=== PATIENT | female | born 1990 | race Caucasian/White ===

== ENCOUNTER 2023-12-15 06:00 | Inpatient (IN) | payer BC ==
[2023-12-15] MEDS: LACTATED RINGERS 1,000 ML IV SCH (06:15)
[2023-12-15] MEDS ORDERED: miSOPROStoL 200 MCG TAB PO PRN (06:18)
[2023-12-15] MEDS ORDERED: OXYTOCIN 10 UNIT/ML 1 ML VIAL IM PRN (06:18)
[2023-12-15] MEDS ORDERED: TRANEXAMIC 1,000 MG/100ML-NACL 1,000 MG in EMPTY BAG 1 BAG IV PRN (06:18)
[2023-12-15] MEDS ORDERED: miSOPROStoL 200 MCG TAB RECTAL PRN (06:18)
[2023-12-15] MEDS ORDERED: CARBOPROST TROMETHAMINE 250 MCG/ML 1 ML AMP IM PRN (06:18)
[2023-12-15] MEDS ORDERED: LIDOCAINE 0.5% (PF) 5 MG/ML (50 ML SDV) SQ PRN (06:18)
[2023-12-15] MEDS ORDERED: METHYLERGONOVINE 0.2 MG/ML 1 ML AMP IM PRN (06:18)
[2023-12-15] MEDS ORDERED: TERBUTALINE 1 MG/ML VIAL SQ PRN (06:18)
[2023-12-15 06:34] LABS: Basophils # (A) 0.1 k/uL (0-0.2); Basophils % (A) 0 %; Eosinophils # (A) 0.3 k/uL (0-0.7); Eosinophils % (A) 2 %; HCT 43.2 % (34.0-46.0); HGB 14.4 gm/dL (11.4-16.0); Lymphocytes # (A) 3.1 k/uL (1.0-4.8); Lymphocytes % (A) 27 %; MCH 28.6 pg (25.0-35.0); MCHC 33.4 g/dL (31.0-37.0); MCV 85.6 fL (80.0-100.0); Mean Platelet Volume 8.7; Monocytes # (A) 0.6 k/uL (0-1.0); Monocytes % (A) 5 %; Neutrophils # (A) 7.4 k/uL (1.3-7.7); Neutrophils % (A) 64 %; Platelet Count 228 k/uL (150-450); RBC 5.04 m/uL (3.80-5.40); RDW 12.8 % (11.5-15.5); WBC 11.6 k/uL (3.8-10.6)
[2023-12-15] MEDS: OXYTOCIN 30 UNITS/500 ML NS 30 UNIT in SALINE 1 500ML.BAG IV SCH (06:46)
[2023-12-15] MEDS ORDERED: ROPIVACAINE 5 MG/ML 30 ML VIAL ONE (09:45)
[2023-12-15] MEDS ORDERED: fentaNYL (PF) 50 MCG/ML 5 ML AMP ONE (09:45)
[2023-12-15] MEDS ORDERED: SODIUM CHLORIDE 0.9% 250 ML BAG ONE (09:45)
[2023-12-15] MEDS ORDERED: ZOLPIDEM 5 MG TAB PO PRN (14:24)
[2023-12-15] MEDS ORDERED: diphenhydrAMINE 25 MG CAP PO PRN (14:24)
[2023-12-15] MEDS ORDERED: HYDROCORTISONE 2.5% RECTAL CREAM 30 GM TUBE RECTAL PRN (14:24)
[2023-12-15] MEDS ORDERED: SIMETHICONE 80 MG CHEWABLE PO PRN (14:24)
[2023-12-15] MEDS ORDERED: diphenhydrAMINE 50 MG CAP PO PRN (14:24)
[2023-12-15] MEDS ORDERED: diphenhydrAMINE 50 MG/ML 1 ML VIAL IVP PRN ×2 (14:24)
[2023-12-15] MEDS ORDERED: BENZOCAINE/MENTHOL SPRAY 1 GM/SPRAY AEROSOL TOPICAL PRN (14:24)
[2023-12-15] MEDS ORDERED: LANOLIN CREAM 1 GM TUBE TOPICAL PRN (14:24)
--- NOTE | 2023-12-15 14:27 | P.HPOB ---
History of Present Illness H&P Date: 12/15/23 Chief Complaint: IUP at 39 and 2/7 weeks This is a 33-year-old 1 para 0 that presented to labor and delivery at 39-2/7 weeks. Patient has been receiving routine care with myself which has been essentially uncomplicated. On blood work this patient is a blood type of a positive, rubella status immune, hepatitis B surface engine negative, HIV negative, RPR is nonreactive, group B strep culture is negative. Upon admission patient notes good movement, denies loss of fluid or vaginal bleeding notes an occasional contraction. Review of Systems Constitutional: Denies chills, Denies fatigue, Denies fever Ears, nose, mouth and throat: Denies headache Cardiovascular: Reports leg edema Respiratory: Denies dyspnea Gastrointestinal: Denies nausea, Denies vomiting Genitourinary: Reports Past Medical History Past Medical History: No Reported History History of Any Multi-Drug Resistant Organisms: None Reported Past Surgical History: No Surgical Hx Reported Smoking Status: Never smoker Medications and Allergies Home Medications Medication Instructions Recorded Confirmed Type Aspirin [Adult Low Dose Aspirin EC] 81 mg PO 12/15/23 History Vit No.179/Iron/Folic 1 each PO 12/15/23 History [ Tablet] Allergies Allergy/AdvReac Type Severity Reaction Status Date / Time No Known Allergies Allergy Verified 12/15/23 06:16 Exam Osteopathic Statement: *. No significant issues noted on an osteopathic struct ural exam other than those noted in the History and Physical/Consult. Vital Signs Temp Pulse Resp BP Pulse Ox 12/15/23 06:16 96.9 F L 109 H 16 147/91 96 Intake and Output 12/14/23 12/15/23 12/15/23 22:59 06:59 14:59 Other: Weight 117.934 kg Targeted physical exam is performed this date General Is well-nourished well- developed female in no acute distress, breathing is nonlabored, heart has a regular rhythm, abdomen is gravid, patient noted spontaneous rupture around 815 this morning, on cervical exam she is 3-4/100/-2 station heart tones were to be category 1 and she is sushil every 4 minutes. Results Result Diagrams: 12/15/23 06:25 Abnormal Lab Results - Last 24 Hours (Table) 12/15/23 Range/Units 06:25 WBC 11.6 H (3.8-10.6) k/uL Assessment and Plan (1) Term Current Visit: Yes Status: Acute Code(s): Z34.90 - ENCNTR FOR SUPRVSN OF NORMAL , UNSP, UNSP TRIMESTER SNOMED Code(s): 15327745 (2) Spontaneous rupture of membranes Current Visit: Yes Status: Acute Code(s): UHL8699 - SNOMED Code(s): 799330622 Plan: 33-year-old G1, P0 at 39-2/7 weeks presents for elective induction of labor. Dustin morales is admitted and Pitocin induction of labor was begun. Patient does elect epidural when appropriate.
--- NOTE | 2023-12-15 14:29 | P.PROBDLV ---
Vaginal Delivery Note - . Vaginal Delivery Note: 3-year-old G1, P0 at 39-2/7 weeks presented for induction of labor. Patient is admitted and Pitocin induction of labor was begun. Patient opted for epidural for analgesia. Anesthesia was notified and epidural was placed without difficulty by the anesthesia department. Patient noted spontaneous rupture of membranes on 815 this morning. Patient progressed through labor with some category 2 heart tones being noted, Pitocin was turned off position changes were initiated. Patient progressed to complete began pushing and had a normal spontaneous vaginal delivery of a viable female infant at 1409, weight of 8 pounds 7 ounces, Apgars of 9 and 9 at 1 and 5 minutes respectively. After 2- minute delay the umbilical cord was doubly clamped and cut. The placenta was delivered spontaneously intact with three-vessel cord being noted. Uterus was noted to be firm and below the umbilicus. Bladder was drained for approximately 50 cc of clear yellow urine. Inspection the patient's vaginal vault secondary midline laceration was appreciated. This was repaired in the usual fashion with 3-0 Rapide. After closure hemostasis was noted. Estimated blood loss 200 cc. All counts were noted be correct x 2 at the end of the delivery. And infant tolerated delivery well and are resting comfortably.
[2023-12-15] MEDS: IBUPROFEN 800 MG TAB PO SCH (16:07)
[2023-12-15] MEDS: ACETAMINOPHEN TAB 500 MG TAB PO SCH (16:08)
[2023-12-15 16:47] VITALS: RESP 16
[2023-12-16] MEDS: SENNOSIDES-DOCUSATE SODIUM 1 EACH TAB PO SCH (02:38)
--- NOTE | 2023-12-16 08:40 | P.DS ---
Providers Date of admission: 12/15/23 06:00 Expected date of discharge: 12/16/23 Attending physician: Linda Evans Primary care physician: Stated None - Discharge Diagnosis(es) (1) Term Current Visit: Yes Status: Acute (2) Spontaneous rupture of membranes Current Visit: Yes Status: Acute (3) Status post normal vaginal delivery Current Visit: Yes Status: Acute (4) Obstetrical laceration, second degree Current Visit: Yes Status: Acute Hospital Course: 33-year-old 1 now para 1 presented at 39-2/7 weeks for induction of labor. Patient had been receiving routine care which is essentially uncomplicated. For full details on the patient please see the dictated history and physical. Patient was admitted and Pitocin induction of labor was begun. Patient had spontaneous rupture of membranes after admission. Patient progressed through labor eventually becoming uncomfortable and requesting epidural. Patient had epidural placed without difficulty by the anesthesia department. Patient progressed to complete began pushing had a normal spontaneous vaginal delivery of a viable female infant at 1409, weight of 8 pounds 7 ounces. Patient did sustain a second-degree midline laceration which was repaired in the usual fashion. Patient's course has been uneventful. In this day #1 she is ambulating and voiding out difficulty. She is tolerating a regular diet without nausea or vomiting. States her pain is well-controlled. She denies concerns. She states her lochia is minimal to moderate. She is breast-feeding without difficulty. She would like discharge home later today. Patient Condition at Discharge: Good Plan - Discharge Summary New Discharge Prescriptions: No Action Aspirin [Adult Low Dose Aspirin EC] 81 mg PO Vit No.179/Iron/Folic [ Tablet] 1 each PO Discharge Medication List Aspirin [Adult Low Dose Aspirin EC] 81 mg PO 12/15/23 [History] Vit No.179/Iron/Folic [ Tablet] 1 each PO 12/15/23 [History] Follow up Appointment(s)/Referral(s): Linda Evans DO [Doctor of Osteopathic Medicine] - 01/27/24 1:00 pm Patient Instructions/Handouts: Vaginal Delivery (GEN), Vaginal Delivery (DC) Activity/Diet/Wound Care/Special Instructions: No tub baths or intercourse until 6 weeks . [id number] ibuprofen 600 mg or 3 tablets every 6 hours as needed for pain. Patient has a routine check at 6 weeks. Should she have any concerns prior to this appointment she is urged to call the office and be seen sooner. Discharge Disposition: HOME SELF-CARE
[2023-12-16] MEDS: PRENATAL VIT-IRON-FOLIC ACID 1 EACH TABLET PO SCH (10:21)
[2023-12-16 14:28] VITALS: BP 125/72; PULSE 80; TEMP 98
== END 2023-12-16 15:30 | disposition home or self-care (01) | DRG 807 ==
LOC: 4FBP 06:00
PROVIDERS: ADMIT Obstetrics & Gynecology Obstetrics; ATTEND Obstetrics & Gynecology Obstetrics
PROC: 0KQM0ZZ Repair Perineum Muscle, Open Approach (ICD-10-PCS; principal; 2023-12-15)
PROC: 10E0XZZ Delivery of Products of Conception, External Approach (ICD-10-PCS; principal; 2023-12-15)
DX: O70.1 Second degree perineal laceration during delivery (principal); Z37.0 Single live birth; Z3A.39 39 weeks gestation of pregnancy; Z79.82 Long term (current) use of aspirin
CPT/HCPCS: 85025; 86850; 86900; 86901